=== PATIENT | female | born 1940 | race Caucasian/White ===

== ENCOUNTER 2020-07-04 09:51 | Day surgery (SDC) | payer MEDICARE ==
[2020-07-08 12:08] LABS: Performing Lab SYMBIODX; Test Name HER2 FISH
[2020-07-14 15:32] LABS: Result SEE LABOUT RESULTS
== END 2020-07-04 23:22 | disposition home or self-care (01) ==
LOC: MOI US 09:51
PROVIDERS: Pathology Clinical Pathology/Laboratory Medicine
DX: C50.912 Malignant neoplasm of unspecified site of left female breast (principal); E78.5 Hyperlipidemia, unspecified; G43.909 Migraine, unspecified, not intractable, without status migrainosus; J45.909 Unspecified asthma, uncomplicated; G62.9 Polyneuropathy, unspecified; Z17.0 Estrogen receptor positive status [ER+]; Z79.899 Other long term (current) drug therapy
CPT/HCPCS: 19083; 77065; 88305; 88360; 88374; A4648

== ENCOUNTER 2020-07-25 07:30 | Day surgery (SDC) | payer MEDICARE | END 2020-07-25 22:45 | disposition home or self-care (01) | LOC: MOI US 07:30 | DX: C50.912 Malignant neoplasm of unspecified site of left female breast (principal) | CPT/HCPCS: 19285; 77065 ==

== ENCOUNTER 2020-07-31 07:41 | Day surgery (SDC) | payer MEDICARE ==
[~2020-07-31] VITALS: Ht 160 cm; Wt 75.3 kg
[2020-07-31] MEDS ORDERED: GABA100 PO (08:28)
[2020-07-31] MEDS ORDERED: ALEN70 PO (08:29)
[2020-07-31] MEDS ORDERED: ATOR20 PO (08:29)
--- NOTE | 2020-07-31 12:59 | NUR ---
07/31/20 Suraj Watson PT RESTING ON RECLINER. REPORT RECEIVED FROM CHRISTOPHER PADRON. PT SLEEPING. VS WNL. WILL CONTINUE TO MONITOR. PT TOLERATING WATER.
== END 2020-07-31 14:30 | disposition home or self-care (01) ==
LOC: ORSCSDS 07:41 → RAD 09:00 → ORSCSDS 14:30
PROVIDERS: Surgery
PROC: 0HBU0ZZ Excision of Left Breast, Open Approach (ICD-10-PCS; principal; 2020-07-31 10:00)
PROC: 07B60ZX Excision of Left Axillary Lymphatic, Open Approach, Diagnostic (ICD-10-PCS; principal; 2020-07-31 10:00)
DX: C50.912 Malignant neoplasm of unspecified site of left female breast (principal); D36.0 Benign neoplasm of lymph nodes; E78.5 Hyperlipidemia, unspecified; J45.909 Unspecified asthma, uncomplicated; Z79.899 Other long term (current) drug therapy
CPT/HCPCS: 38792; 76098; 88307; 88342; A9270; A9520; J0690; J1100; J2250; J2405; J2704; J3010; J7120; Q9968

== ENCOUNTER 2022-05-16 12:49 | Inpatient (IN) | payer MEDICARE ==
[~2022-05-16] VITALS: Ht 160 cm; Wt 74.8 kg
[~2022-05-16 12:49] MED LIST: ALEN70 PO; ATOR20 PO; GABA100 PO
[2022-05-16] MEDS ORDERED: ANASTROZOLE1 M7 PO (13:08)
[2022-05-16] MEDS ORDERED: GABA400 PO (13:08)
[2022-05-16 14:13] LABS: BASOPHILS ABSOLUTE AUTO 0.06 K/mm3 (0.00-0.23); BASOPHILS PERCENT AUTO 1 % (0-2); EOSINOPHILS ABSOLUTE AUTO 0.17 K/mm3 (0.00-0.68); EOSINOPHILS PERCENT AUTO 1 % (0-6); Hematocrit 39.7 % (33.0-51.0); Hemoglobin 13.8 g/dL (11.5-16.0); IMMATURE GRAN ABSOLUTE AUTO 0.06 K/mm3 (0.00-0.10); IMMATURE GRAN PERCENT AUTO 1 % (0-1); LYMPHOCYTES ABSOLUTE AUTO 1.74 K/mm3 (0.84-5.20); LYMPHOCYTES PERCENT AUTO 13 % (21-46); MONOCYTES PERCENT AUTO 5 % (4-13); Mean Corpuscular HGB 29.9 pg (26.0-34.0); Mean Corpuscular HGB Conc 34.8 g/dL (31.5-36.5); Mean Corpuscular Volume 86 fL (80-100); Mean Platelet Volume 9.2 fL (9.1-12.4); NEUTROPHILS ABSOLUTE AUTO 10.46 K/mm3 (1.96-9.15); NEUTROPHILS PERCENT AUTO 79 % (41-73); Platelet Count 242 K/mm3 (150-400); RDW Standard Deviation 38.5 fL (35.1-46.3); Red Blood Cell Count 4.61 M/mm3 (3.80-5.20); White Blood Cell Count 13.19 K/mm3 (4.00-11.30)
[2022-05-16 14:40] LABS: Albumin, Blood 3.6 g/dL (3.4-5.0); Albumin/Globulin Ratio 1.1 (0.8-1.8); Bilirubin, Total 0.3 mg/dL (0.1-1.0); Calcium, Blood 8.8 mg/dL (8.5-10.1); Creatinine, Blood 0.67 mg/dL (0.40-1.00); Globulin, Blood 3.3 g/dL (2.2-4.0); Total Protein, Blood 6.9 g/dL (6.4-8.2)
[2022-05-16 19:12] LABS: Source, Urine Foley catheter
[2022-05-16 19:29] LABS: Appearance, Urine Clear (Clear); Bilirubin, Urine Neg (Neg); Blood, Urine 1+ (Neg); Color, Urine Yellow (P-Yellow); Glucose Qualitative, Urine Neg (Neg); Ketones, Urine 2+ (Neg); Leukocyte Esterase, Urine Neg (Neg); Nitrite, Urine Neg (Neg); Protein, Urine Neg (Neg); Specific Gravity, Urine 1.015 (1.003-1.022); Urobilinogen, Urine NORM (Normal)
--- NOTE | 2022-05-16 19:43 | NUR ---
SHIFT SUMMARY PT ARRIVED TO SURGICAL FLOOR AT 1700, ACCOMPANIED BY . SHE IS A&O X4, ACCOMPANIED BY . PT C/O PAIN AT 7/10. SHE HAS NAUSEA, RECEIVED ZOFRAN PRN. SURGICAL REPAIR OF LEFT FEMUR FRACTURE IS PLANNED FOR TOMORROW, PT WILL BE NPO AFTER MIDNIGHT. SHE IS PLEASANT WITH STAFF. ROOT INSERTED, URINALYSIS SENT TO LAB PER PROTOCOL. IV ACCESS TO LEFT FOREARM, PATENT AND FLUSHING. RN GAVE REPORT TO ONCOMING NURSE.
[2022-05-16 19:53] LABS: Bacteria Few /hpf; Red Blood Cells, Urine 0-2 /hpf (0-2); Squamous Epithelial Cells Not Seen /hpf (Few); White Blood Cells, Urine 0-2 /hpf (0-5)
[2022-05-16 19:54] LABS: Amorphous Light (0-Heavy); Mucus Light (0-Heavy); Renal Epithelial Rare /hpf (0-Rare)
--- NOTE | 2022-05-17 04:21 | NUR ---
SHIFT SUMMARY PT RESTED INFREQUENTLY T/O NIGHT. AAOX4. NPO SINCE MIDNIGHT. PAIN CONTROLLED WITH 0.5MG IV DILAUDID Q4H. NO NAUSEA/EMESIS THIS SHIFT. PPP, DENIES N/T ALL EXTREMITIES, MOVES TOES WELL BLE. ROOT IN PLACE DRAINING YELLOW/CLEAR. EXPECTING OR TODAY. HELD LOVENOX THIS AM. PT CURRENTLY RESTING IN BED WITH CALL LIGHT IN REACH.
[2022-05-17 04:49] LABS: BASOPHILS ABSOLUTE AUTO 0.02 K/mm3 (0.00-0.23); BASOPHILS PERCENT AUTO 0 % (0-2); EOSINOPHILS ABSOLUTE AUTO 0.09 K/mm3 (0.00-0.68); EOSINOPHILS PERCENT AUTO 1 % (0-6); IMMATURE GRAN ABSOLUTE AUTO 0.02 K/mm3 (0.00-0.10); IMMATURE GRAN PERCENT AUTO 0 % (0-1); LYMPHOCYTES ABSOLUTE AUTO 1.63 K/mm3 (0.84-5.20); LYMPHOCYTES PERCENT AUTO 15 % (21-46); MONOCYTES ABSOLUTE AUTO 0.83 K/mm3 (0.16-1.47); MONOCYTES PERCENT AUTO 8 % (4-13); Mean Corpuscular HGB 28.8 pg (26.0-34.0); Mean Corpuscular HGB Conc 32.5 g/dL (31.5-36.5); Mean Corpuscular Volume 89 fL (80-100); Mean Platelet Volume 9.7 fL (9.1-12.4); NEUTROPHILS ABSOLUTE AUTO 8.55 K/mm3 (1.96-9.15); NEUTROPHILS PERCENT AUTO 77 % (41-73); Platelet Count 225 K/mm3 (150-400); RDW Coefficient Variation 12.3 % (11.7-14.2); RDW Standard Deviation 39.8 fL (35.1-46.3); Red Blood Cell Count 4.51 M/mm3 (3.80-5.20); White Blood Cell Count 11.14 K/mm3 (4.00-11.30)
[2022-05-17 05:39] LABS: Albumin, Blood 3.2 g/dL (3.4-5.0); Bilirubin, Total 0.7 mg/dL (0.1-1.0); Bun/Creatinine Ratio 23.9 (12.0-20.0); Calcium, Blood 8.5 mg/dL (8.5-10.1); Creatinine, Blood 0.63 mg/dL (0.40-1.00); Globulin, Blood 3.3 g/dL (2.2-4.0); Magnesium, Blood 2.3 mg/dL (1.6-2.4); Potassium, Blood 4.1 mmol/L (3.5-5.5); Total Protein, Blood 6.5 g/dL (6.4-8.2)
--- NOTE | 2022-05-17 19:03 | NUR ---
SHIFT SUMMARY PT A&OX4, VSS/RA. PAIN MANAGED WITH 0.5 DILAUDID. N&V TREATED WITH ZOFRAN AND PHEN 12.5 IV. PT STILL IN O.R. REPORT PROVIDED TO BELINDA PADRON & VINH PADRON.
--- NOTE | 2022-05-18 06:27 | NUR ---
SHIFT SUMMARY AOX4. VSS. POD 1 FOR L HIP REPAIR. REPORTED NAUSEA 1X MEDICATED c PO ZOFRAN & NO FURTHER NAUSEA REPORTED. TOLERATING WATER & CRACKERS. REPORTS MILD PAIN IN L HIP, MEDICATED 1X c NORCO. L HIP PRIMEO DRESSING C/D/I, L LEG SENSATION INTACT, PEDAL PULSE STRONG, CAP REFILL <3 & PT ABLE TO WIGGLE TOES. ROOT PATENT & DRAINING. CALL LIGHT IN REACH & PT ABLE TO MAKE NEEDS KNOWN.
[2022-05-18 11:48] LABS: BASOPHILS ABSOLUTE AUTO 0.03 K/mm3 (0.00-0.23); BASOPHILS PERCENT AUTO 0 % (0-2); EOSINOPHILS ABSOLUTE AUTO 0.01 K/mm3 (0.00-0.68); EOSINOPHILS PERCENT AUTO 0 % (0-6); Hematocrit 36.7 % (33.0-51.0); Hemoglobin 11.7 g/dL (11.5-16.0); IMMATURE GRAN ABSOLUTE AUTO 0.07 K/mm3 (0.00-0.10); IMMATURE GRAN PERCENT AUTO 0 % (0-1); LYMPHOCYTES ABSOLUTE AUTO 1.26 K/mm3 (0.84-5.20); LYMPHOCYTES PERCENT AUTO 8 % (21-46); MONOCYTES ABSOLUTE AUTO 1.18 K/mm3 (0.16-1.47); MONOCYTES PERCENT AUTO 7 % (4-13); Mean Corpuscular HGB 29.1 pg (26.0-34.0); Mean Corpuscular HGB Conc 31.9 g/dL (31.5-36.5); Mean Corpuscular Volume 91 fL (80-100); Mean Platelet Volume 9.5 fL (9.1-12.4); NEUTROPHILS ABSOLUTE AUTO 13.61 K/mm3 (1.96-9.15); NEUTROPHILS PERCENT AUTO 84 % (41-73); Platelet Count 240 K/mm3 (150-400); RDW Coefficient Variation 12.4 % (11.7-14.2); RDW Standard Deviation 41.1 fL (35.1-46.3); Red Blood Cell Count 4.02 M/mm3 (3.80-5.20); White Blood Cell Count 16.16 K/mm3 (4.00-11.30)
[2022-05-18 12:02] LABS: Albumin/Globulin Ratio 0.8 (0.8-1.8); Bilirubin, Total 0.4 mg/dL (0.1-1.0); Bun/Creatinine Ratio 22.1 (12.0-20.0); Calcium, Blood 8.7 mg/dL (8.5-10.1); Creatinine, Blood 0.77 mg/dL (0.40-1.00); Globulin, Blood 3.6 g/dL (2.2-4.0); Potassium, Blood 3.7 mmol/L (3.5-5.5); Total Protein, Blood 6.6 g/dL (6.4-8.2)
--- NOTE | 2022-05-18 17:26 | NUR ---
SHIFT SUMMARY PT A&OX4, VSS/RA. POD1 L BENEDICT, PRINEO CDI, WBAT. AMB SBA FWW & GB TO BRP, UP TO CHAIR T/O SHIFT. PAIN MANAGED WITH NORCO 5 MG PRN. MARIA A PO. VOIDING WELL. PLAN FOR PT TO GO HOME WITH AND DAUGHTER, EDU/ENC TO TAKE GAIT BELT HOME FOR SAFETY. EDU/ENC PT TO USE INCENTIVE SPIROMETER T/O SHIFT. WILL REPORT TO ONCOMING CRYSTAL PADRON.
--- NOTE | 2022-05-19 04:11 | NUR ---
SHIFT SUMMARY PT RESTED WELL T/O SHIFT. PRIMEO DRESSING TO LEFT HIP REMAINS CDI WITH POLAR PACK IN PLACE. 1 NORCO FOR PAIN PRN. UP WITH 1 SBA USING FWW + GB. PLAN FOR PT TO DISCHARGE HOME TODAY. CALL LIGHT WITHIN REACH.
[2022-05-19 05:28] LABS: BASOPHILS ABSOLUTE AUTO 0.07 K/mm3 (0.00-0.23); BASOPHILS PERCENT AUTO 1 % (0-2); EOSINOPHILS ABSOLUTE AUTO 0.64 K/mm3 (0.00-0.68); EOSINOPHILS PERCENT AUTO 7 % (0-6); Hematocrit 31.8 % (33.0-51.0); Hemoglobin 10.2 g/dL (11.5-16.0); IMMATURE GRAN ABSOLUTE AUTO 0.03 K/mm3 (0.00-0.10); IMMATURE GRAN PERCENT AUTO 0 % (0-1); LYMPHOCYTES ABSOLUTE AUTO 1.34 K/mm3 (0.84-5.20); LYMPHOCYTES PERCENT AUTO 14 % (21-46); MONOCYTES ABSOLUTE AUTO 0.96 K/mm3 (0.16-1.47); MONOCYTES PERCENT AUTO 10 % (4-13); Mean Corpuscular HGB Conc 32.1 g/dL (31.5-36.5); Mean Corpuscular Volume 90 fL (80-100); Mean Platelet Volume 9.8 fL (9.1-12.4); NEUTROPHILS ABSOLUTE AUTO 6.26 K/mm3 (1.96-9.15); NEUTROPHILS PERCENT AUTO 67 % (41-73); Platelet Count 189 K/mm3 (150-400); RDW Coefficient Variation 12.6 % (11.7-14.2); RDW Standard Deviation 41.4 fL (35.1-46.3); Red Blood Cell Count 3.52 M/mm3 (3.80-5.20)
[2022-05-19 05:46] LABS: Calcium, Blood 7.9 mg/dL (8.5-10.1); Creatinine, Blood 0.64 mg/dL (0.40-1.00); Potassium, Blood 3.7 mmol/L (3.5-5.5)
[2022-05-19] MEDS ORDERED: ACET325 PO (12:03)
[2022-05-19] MEDS ORDERED: HYDR1TAB94 PO (12:04)
[2022-05-19] MEDS ORDERED: ASPI81CH PO (12:05)
[2022-05-19] MEDS ORDERED: ONDA4 PO (12:05)
--- NOTE | 2022-05-19 13:15 | NUR ---
PATIENT CLEARED THERAPY, AMBULATING WELL WITH FWW & GB. PAIN MANAGED PER EMAR. VSS ON ROOM AIR. EATING, DRINKING, & VOIDING WELL. DISCUSSED DISCHARGE INSTRUCTIONS. DISCHARGE DELAYED D/T WAITING FOR FWW THAT CARE MANAGEMENT ORDERED FOR PATIENT.
--- NOTE | 2022-05-19 15:58 | NUR ---
MARY ELLEN ARRIVED, ESCORTED OUT VIA W/C.
== END 2022-05-19 15:59 | disposition home health service (06) | DRG 522 ==
LOC: ER 12:49 → SURS 15:22
PROVIDERS: Family Medicine; Hospitalist; Orthopaedic Surgery; Student in an Organized Health Care Education/Training Program; ADMIT Internal Medicine
PROC: 0SRB04A Replacement of Left Hip Joint with Ceramic on Polyethylene Synthetic Substitute, Uncemented, Open Approach (ICD-10-PCS; principal; 2022-05-17 17:00)
DX: S72.002A Fracture of unspecified part of neck of left femur, initial encounter for closed fracture (principal); D72.829 Elevated white blood cell count, unspecified; G89.18 Other acute postprocedural pain; E78.5 Hyperlipidemia, unspecified; M51.9 Unspecified thoracic, thoracolumbar and lumbosacral intervertebral disc disorder; K58.9 Irritable bowel syndrome, unspecified; W01.198A Fall on same level from slipping, tripping and stumbling with subsequent striking against other object, initial encounter; G43.909 Migraine, unspecified, not intractable, without status migrainosus; M79.2 Neuralgia and neuritis, unspecified; J45.909 Unspecified asthma, uncomplicated; Z88.2 Allergy status to sulfonamides; Z79.899 Other long term (current) drug therapy; Z79.02 Long term (current) use of antithrombotics/antiplatelets; Z85.3 Personal history of malignant neoplasm of breast; Z90.12 Acquired absence of left breast and nipple; Z98.890 Other specified postprocedural states; Z91.041 Radiographic dye allergy status
CPT/HCPCS: 36415; 72170; 73502; 80048; 80053; 81001; 83735; 85025; 86850; 86900; 86901; 97110; 97116; 97162; 97165; 97530; 97535; A9270; C1713; C1776; J0171; J0690; J0735; J1100; J1170; J1650; J1885; J2270; J2405; J2550; J2704; J2765; J2795; J3010; J7120

== ENCOUNTER 2022-05-26 16:46 | Emergency (ER) | payer MEDICARE ==
[~2022-05-26] VITALS: Ht 160 cm; Wt 74.8 kg
[~2022-05-26 16:46] MED LIST changes: -PROM12.5S PR
[2022-05-26 18:52] LABS: Influenza A, PCR NEGATIVE (NEGATIVE); Influenza B, PCR NEGATIVE (NEGATIVE); Resp Syncytial Virus, PCR NEGATIVE (NEGATIVE); SARS-Cov-2 (COVID-19) PCR, MMC NEGATIVE (NEGATIVE)
[2022-05-26] MEDS ORDERED: PROM12.5S PR (21:57)
== END 2022-05-26 22:23 | disposition home or self-care (01) ==
LOC: ER 16:46
PROVIDERS: Physician Assistant
DX: R11.2 Nausea with vomiting, unspecified (principal); M25.559 Pain in unspecified hip; Z20.822 Contact with and (suspected) exposure to COVID-19; Z88.2 Allergy status to sulfonamides; Z88.8 Allergy status to other drugs, medicaments and biological substances; Z79.899 Other long term (current) drug therapy; Z79.82 Long term (current) use of aspirin
CPT/HCPCS: 0241U; A9270; J2550; J7030

== ENCOUNTER → 2022-05-26 | Outpatient (CLI) | payer MEDICARE ==
[~2022-05-26] MED LIST changes: +ACET325 PO; +ANASTROZOLE1 M7 PO; +ASPI81CH PO; +GABA400 PO; +HYDR1TAB94 PO; +ONDA4 PO; +PROM12.5S PR
[2022-05-26 10:10] LABS: BASOPHILS ABSOLUTE AUTO 0.05 K/mm3 (0.00-0.23); BASOPHILS PERCENT AUTO 0 % (0-2); EOSINOPHILS ABSOLUTE AUTO 0.08 K/mm3 (0.00-0.68); EOSINOPHILS PERCENT AUTO 1 % (0-6); Hematocrit 34.6 % (33.0-51.0); Hemoglobin 11.8 g/dL (11.5-16.0); IMMATURE GRAN PERCENT AUTO 1 % (0-1); LYMPHOCYTES ABSOLUTE AUTO 1.82 K/mm3 (0.84-5.20); LYMPHOCYTES PERCENT AUTO 12 % (21-46); MONOCYTES ABSOLUTE AUTO 0.87 K/mm3 (0.16-1.47); MONOCYTES PERCENT AUTO 6 % (4-13); Mean Corpuscular HGB Conc 34.1 g/dL (31.5-36.5); Mean Corpuscular Volume 88 fL (80-100); Mean Platelet Volume 9.1 fL (9.1-12.4); NEUTROPHILS ABSOLUTE AUTO 12.84 K/mm3 (1.96-9.15); NEUTROPHILS PERCENT AUTO 82 % (41-73); Platelet Count 469 K/mm3 (150-400); RDW Coefficient Variation 12.4 % (11.7-14.2); Red Blood Cell Count 3.93 M/mm3 (3.80-5.20); White Blood Cell Count 15.76 K/mm3 (4.00-11.30)
[2022-05-26 10:13] LABS: Bun/Creatinine Ratio 14.7 (12.0-20.0); Calcium, Blood 9.3 mg/dL (8.5-10.1); Creatinine, Blood 0.75 mg/dL (0.40-1.00); Potassium, Blood 3.7 mmol/L (3.5-5.5)
== END ==
LOC: LAB SHORT 10:03 → LAB 10:03
PROVIDERS: Physician Assistant
DX: N39.0 Urinary tract infection, site not specified (principal)
CPT/HCPCS: 80048; 85025

== ENCOUNTER → 2022-06-28 | Outpatient (CLI) | payer MEDICARE ==
[~2022-06-28] MED LIST changes: +PROM12.5S PR
[2022-06-28 15:09] LABS: BASOPHILS ABSOLUTE AUTO 0.05 K/mm3 (0.00-0.23); BASOPHILS PERCENT AUTO 0 % (0-2); EOSINOPHILS ABSOLUTE AUTO 0.44 K/mm3 (0.00-0.68); EOSINOPHILS PERCENT AUTO 4 % (0-6); Hematocrit 42.1 % (33.0-51.0); Hemoglobin 13.5 g/dL (11.5-16.0); IMMATURE GRAN ABSOLUTE AUTO 0.03 K/mm3 (0.00-0.10); IMMATURE GRAN PERCENT AUTO 0 % (0-1); LYMPHOCYTES ABSOLUTE AUTO 2.31 K/mm3 (0.84-5.20); LYMPHOCYTES PERCENT AUTO 21 % (21-46); MONOCYTES ABSOLUTE AUTO 1.01 K/mm3 (0.16-1.47); MONOCYTES PERCENT AUTO 9 % (4-13); Mean Corpuscular HGB 28.5 pg (26.0-34.0); Mean Corpuscular HGB Conc 32.1 g/dL (31.5-36.5); Mean Corpuscular Volume 89 fL (80-100); Mean Platelet Volume 9.2 fL (9.1-12.4); NEUTROPHILS ABSOLUTE AUTO 7.43 K/mm3 (1.96-9.15); NEUTROPHILS PERCENT AUTO 66 % (41-73); Platelet Count 414 K/mm3 (150-400); RDW Coefficient Variation 13.1 % (11.7-14.2); RDW Standard Deviation 42.6 fL (35.1-46.3); Red Blood Cell Count 4.73 M/mm3 (3.80-5.20); White Blood Cell Count 11.27 K/mm3 (4.00-11.30)
[2022-06-28 15:44] LABS: Albumin, Blood 3.7 g/dL (3.4-5.0); Bilirubin, Total 0.4 mg/dL (0.1-1.0); Bun/Creatinine Ratio 17.2 (12.0-20.0); Calcium, Blood 9.3 mg/dL (8.5-10.1); Creatinine, Blood 0.64 mg/dL (0.40-1.00); Globulin, Blood 3.7 g/dL (2.2-4.0); Total Protein, Blood 7.4 g/dL (6.4-8.2)
== END | disposition home or self-care (01) ==
LOC: LAB SHORT 15:04 → LAB 15:04
PROVIDERS: Physician Assistant
DX: R06.09 Other forms of dyspnea (principal); R82.90 Unspecified abnormal findings in urine
CPT/HCPCS: 80053; 83880; 85025; 85379; 87086

== ENCOUNTER 2022-06-29 14:44 | Emergency (ER) | payer MEDICARE ==
[~2022-06-29] VITALS: Ht 160 cm; Wt 69.4 kg
== END 2022-06-29 17:47 | disposition home or self-care (01) ==
LOC: ER 14:44
DX: R05.9 Cough, unspecified (principal); R06.02 Shortness of breath; R79.1 Abnormal coagulation profile; Z96.642 Presence of left artificial hip joint; Z88.8 Allergy status to other drugs, medicaments and biological substances; Z88.5 Allergy status to narcotic agent; Z88.2 Allergy status to sulfonamides; Z79.899 Other long term (current) drug therapy; Z79.82 Long term (current) use of aspirin
CPT/HCPCS: 78580; A9540

== ENCOUNTER → 2022-06-29 | Outpatient (CLI) | payer MEDICARE | END | disposition home or self-care (01) | LOC: LAB SHORT 12:53 → LAB 12:53 | DX: R06.02 Shortness of breath (principal) | CPT/HCPCS: 84484 ==

== ENCOUNTER → 2023-06-15 | Outpatient (CLI) | payer MEDICARE | LOC: LAB 15:10 → LAB SHORT 15:10 | DX: N39.0 Urinary tract infection, site not specified (principal) | CPT/HCPCS: 87086 ==

== ENCOUNTER → 2023-06-15 | Outpatient (CLI) | payer MEDICARE ==
[2023-06-15 13:27] LABS: BASOPHILS ABSOLUTE AUTO 0.04 K/mm3 (0.00-0.23); BASOPHILS PERCENT AUTO 0 % (0-2); EOSINOPHILS ABSOLUTE AUTO 0.06 K/mm3 (0.00-0.68); EOSINOPHILS PERCENT AUTO 1 % (0-6); Hematocrit 43.9 % (33.0-51.0); Hemoglobin 14.7 g/dL (11.5-16.0); IMMATURE GRAN ABSOLUTE AUTO 0.03 K/mm3 (0.00-0.10); IMMATURE GRAN PERCENT AUTO 0 % (0-1); LYMPHOCYTES ABSOLUTE AUTO 1.61 K/mm3 (0.84-5.20); LYMPHOCYTES PERCENT AUTO 14 % (21-46); MONOCYTES ABSOLUTE AUTO 0.85 K/mm3 (0.16-1.47); MONOCYTES PERCENT AUTO 7 % (4-13); Mean Corpuscular HGB 29.1 pg (26.0-34.0); Mean Corpuscular HGB Conc 33.5 g/dL (31.5-36.5); Mean Corpuscular Volume 87 fL (80-100); Mean Platelet Volume 9.5 fL (9.1-12.4); NEUTROPHILS ABSOLUTE AUTO 8.99 K/mm3 (1.96-9.15); NEUTROPHILS PERCENT AUTO 78 % (41-73); Platelet Count 293 K/mm3 (150-400); RDW Coefficient Variation 12.8 % (11.7-14.2); RDW Standard Deviation 40.3 fL (35.1-46.3); Red Blood Cell Count 5.06 M/mm3 (3.80-5.20); White Blood Cell Count 11.58 K/mm3 (4.00-11.30)
[2023-06-15 13:36] LABS: Bilirubin, Total 0.8 mg/dL (0.1-1.0); Bun/Creatinine Ratio 16.7 (12.0-20.0); Calcium, Blood 9.3 mg/dL (8.5-10.1); Creatinine, Blood 0.72 mg/dL (0.40-1.00); Potassium, Blood 3.4 mmol/L (3.5-5.5)
== END | disposition home or self-care (01) ==
LOC: LAB SHORT 13:22 → LAB 13:22
PROVIDERS: Family Medicine
DX: R11.10 Vomiting, unspecified (principal)
CPT/HCPCS: 80053; 85025

== ENCOUNTER 2024-04-17 06:41 | Day surgery (SDC) | payer MEDICARE ==
[~2024-04-17] VITALS: Ht 160 cm; Wt 72.5 kg
[~2024-04-17 06:41] MED LIST changes: +Balanced Salt Epinephrine Irrigation Solution 500 mL IR PRN; +Gentamicin Ophth IR Soln 4 MG/0.4 ML SYR IR SCH; +NS 500 ML IV ONE; +PHENYLEPHRINE\\TROPICAMIDE\\TETRACAINE OPHTHALMIC DILATING SOLN LEFTEYE PRN; +Povidone-Iodine 450 DROP/30 ML Solution LEFTEYE SCH; +Povidone-Iodine 450 DROP/30 ML Solution ONE; +Tetracaine HCl/Pf 0.5% Opth Soln 4 ml ONE; +Vancomycin Ophth IR Soln 10 MG/0.2 ML SYR IR SCH
[2024-04-17] MEDS ORDERED: ALBU8HFA2 INH (06:59)
[2024-04-17] MEDS ORDERED: LOPE2C PO (07:00)
[2024-04-17] MEDS ORDERED: SUMA25 (07:00)
[2024-04-17] MEDS ORDERED: FentaNYL Citrate 50 MCG/ML 2 ML Injection ONE (07:37)
[2024-04-17] MEDS ORDERED: Midazolam HCl 1MG / ML 2ML Vial ONE (07:38)
[2024-04-17] MEDS ORDERED: [UNRECOGNIZED DRUG - OTHER] XX ONE (07:51)
[2024-04-17] MEDS ORDERED: Lidocaine HCl/Pf 1% 5 ML VIAL XX ONE (08:12)
[2024-04-17 08:45] VITALS: BP 134/73
== END 2024-04-17 09:00 | disposition home or self-care (01) ==
LOC: ORSCSDS 06:41
PROVIDERS: Ophthalmology
PROC: 08RK3JZ Replacement of Left Lens with Synthetic Substitute, Percutaneous Approach (ICD-10-PCS; principal; 2024-04-17 08:00)
DX: H25.12 Age-related nuclear cataract, left eye (principal); J45.909 Unspecified asthma, uncomplicated; E78.5 Hyperlipidemia, unspecified; Z79.82 Long term (current) use of aspirin; Z79.899 Other long term (current) drug therapy
CPT/HCPCS: J2001; J2003; J2250; J3010; J7040; V2632

== ENCOUNTER → 2024-09-05 | Outpatient (CLI) | payer MEDICARE ==
[~2024-09-05] MED LIST changes: +ALBU8HFA2 INH; -Balanced Salt Epinephrine Irrigation Solution 500 mL IR PRN; -Gentamicin Ophth IR Soln 4 MG/0.4 ML SYR IR SCH; +LOPE2C PO; -NS 500 ML IV ONE; -PHENYLEPHRINE\\TROPICAMIDE\\TETRACAINE OPHTHALMIC DILATING SOLN LEFTEYE PRN; -Povidone-Iodine 450 DROP/30 ML Solution LEFTEYE SCH; -Povidone-Iodine 450 DROP/30 ML Solution ONE; +SUMA25; -Tetracaine HCl/Pf 0.5% Opth Soln 4 ml ONE; -Vancomycin Ophth IR Soln 10 MG/0.2 ML SYR IR SCH
== END ==
LOC: LAB SHORT 11:30 → LAB 11:30
DX: R32 Unspecified urinary incontinence (principal)
CPT/HCPCS: 87077; 87086; 87186